=== PATIENT | female | born 1995 | race African-American/Black ===

== ENCOUNTER 2025-01-10 13:51 | Inpatient (IN) | payer OTHER ==
[2025-01-10 14:23] VITALS: BMI 26.2
[2025-01-10] MEDS ORDERED: guaiFENesin 600 MG TABLET.ER (FP) PO PRN (14:31)
[2025-01-10] MEDS ORDERED: POLYETHYLENE GLYCOL (HEALTHYLAX) 3350 17 GM PACKET PO PRN (14:31)
[2025-01-10] MEDS ORDERED: DICYCLOMINE HCL 10 MG CAPSULE PO PRN (14:31)
[2025-01-10] MEDS ORDERED: hydrOXYzine PAMOATE 25 MG CAPSULE (FP) PO PRN (14:31)
[2025-01-10] MEDS ORDERED: BENZONATATE 200 MG CAPSULE PO PRN (14:31)
[2025-01-10] MEDS ORDERED: NALOXONE (NARCAN) HCL 4 MG/0.1 ML SPRAY NS PRN (14:31)
[2025-01-10] MEDS ORDERED: ONDANSETRON *ODT* 4 MG TABLET SL PRN (14:31)
[2025-01-10] MEDS ORDERED: MAGNESIUM HYDROX 2400MG/30ML ORAL SUSPENSION 30 ML CUP PO PRN (14:31)
[2025-01-10] MEDS ORDERED: MAG HYDROX/AL HYDROX/SIMETH 30 ML UNIT-DOSE CUP PO PRN (14:31)
[2025-01-10] MEDS ORDERED: BENZOCAINE/MENTHOL (CHLORASEPTIC ) LOZENGE MM PRN (14:31)
[2025-01-10] MEDS ORDERED: BISMUTH SUBSALICYLATE 524 MG/30 ML PO PRN (14:31)
[2025-01-10] MEDS ORDERED: LOPERAMIDE HCL 2 MG CAPSULE PO PRN (14:31)
[2025-01-10] MEDS: IBUPROFEN 600 MG TABLET (FP) PO PRN (17:30)
[2025-01-10] MEDS: PRENATAL VITAMINS W/ FOLIC ACID TABLET (FP) PO SCH (17:39)
[2025-01-10] MEDS: THIAMINE 100 MG TABLET PO SCH (21:38)
[2025-01-10] MEDS: METHOCARBAMOL 500 MG TABLET PO PRN (21:38)
[2025-01-10] MEDS: MELATONIN 5 MG TABLETS PO SCH (21:38)
[2025-01-11] MEDS ORDERED: chlordiazePOXIDE HCL 25 MG CAPSULE PO PRN (09:23)
[2025-01-11] MEDS: chlordiazePOXIDE HCL 25 MG CAPSULE PO SCH (10:26)
[2025-01-11 10:28] LABS: HEMATOCRIT 31.1 % (34.1-44.9); HEMOGLOBIN 9.5 g/dL (11.2-15.7); MCHC 30.5 g/dl (32.2-35.5); MEAN CELL VOLUME 78.3 fl (79.4-94.8); PLATELET COUNT 235 x10^3/uL (182-369); RDW 16.8 % (12.1-16.5)
[2025-01-11 10:30] LABS: POTASSIUM 4.3 mmol/L (3.5-5.1)
[2025-01-11 10:47] LABS: CALCIUM 9.6 mg/dL (8.5-10.1)
[2025-01-11 10:48] LABS: ALBUMIN 3.6 g/dl (3.4-5.0)
[2025-01-11 10:50] LABS: BLOOD UREA NITROGEN 6.5 mg/dL (7-18)
[2025-01-11 10:51] LABS: CREATININE 0.8 mg/dL (0.55-1.3)
[2025-01-11 10:52] LABS: BILIRUBIN,TOTAL 0.9 mg/dL (0.2-1)
[2025-01-11] MEDS: ACETAMINOPHEN 325 MG TABLET (FP) PO PRN (22:22)
[2025-01-12] MEDS: chlordiazePOXIDE HCL 25 MG CAPSULE PO SCH (06:40)
[2025-01-12] MEDS: IBUPROFEN 400 MG TABLET (FP) PO PRN (06:43)
[2025-01-12] MEDS ORDERED: ALBUTEROL SO4 HFA INHALER IH PRN (09:56)
[2025-01-13] MEDS ORDERED: chlordiazePOXIDE HCL 10 MG CAPSULE PO PRN
[2025-01-13] MEDS: chlordiazePOXIDE HCL 10 MG CAPSULE PO SCH (05:55)
[2025-01-14] MEDS: chlordiazePOXIDE HCL 10 MG CAPSULE PO SCH (05:29)
[2025-01-14 09:34] VITALS: TEMP 97.6
[2025-01-14] MEDS: NALTREXONE HCL 50 MG TABLET PO ONE (10:52)
[2025-01-14 13:23] VITALS: BP 105/60; PULSE 71; RESP 16
[2025-01-14 15:04] LABS: IRON SERUM 18 ug/dL (50-175)
[2025-01-14 15:05] LABS: TOTAL IRON BINDING CAPACITY 465 ug/dL (250-450)
[2025-01-15] MEDS ORDERED: chlordiazePOXIDE HCL 10 MG CAPSULE PO ONE (05:00)
[2025-01-15] MEDS ORDERED: NALTREXONE HCL 50 MG TABLET PO SCH (10:00)
== END 2025-01-14 15:25 | disposition home or self-care (01) | DRG 775 ==
LOC: YASAS 13:51 → Y6N 16:47
PROVIDERS: ADMIT Allergy & Immunology; ATTEND Allergy & Immunology
PROC: HZ2ZZZZ Detoxification Services for Substance Abuse Treatment (ICD-10-PCS; principal; 2025-01-10)
DX: F10.230 Alcohol dependence with withdrawal, uncomplicated (principal); F17.210 Nicotine dependence, cigarettes, uncomplicated; F25.9 Schizoaffective disorder, unspecified; F10.282 Alcohol dependence with alcohol-induced sleep disorder; F10.24 Alcohol dependence with alcohol-induced mood disorder; J45.20 Mild intermittent asthma, uncomplicated
CPT/HCPCS: 36415; 80053; 80305; 80307; 82607; 82728; 82747; 83540; 83550; 85014; 85027; 86780; 93005; 93010

== ENCOUNTER 2025-03-06 08:25 | Inpatient (IN) | payer OTHER ==
[2025-03-06 08:58] VITALS: BMI 25.9
[2025-03-06] MEDS ORDERED: NICOTINE POLACRILEX 4 MG GUM BUC PRN (09:03)
[2025-03-06] MEDS ORDERED: BENZONATATE 200 MG CAPSULE PO PRN (09:03)
[2025-03-06] MEDS ORDERED: NALOXONE (NARCAN) HCL 4 MG/0.1 ML SPRAY NS PRN (09:03)
[2025-03-06] MEDS ORDERED: DICYCLOMINE HCL 10 MG CAPSULE PO PRN (09:03)
[2025-03-06] MEDS ORDERED: METHOCARBAMOL 500 MG TABLET PO PRN (09:03)
[2025-03-06] MEDS ORDERED: ONDANSETRON *ODT* 4 MG TABLET SL PRN (09:03)
[2025-03-06] MEDS ORDERED: MAGNESIUM HYDROX 2400MG/30ML ORAL SUSPENSION 30 ML CUP PO PRN (09:03)
[2025-03-06] MEDS ORDERED: POLYETHYLENE GLYCOL (HEALTHYLAX) 3350 17 GM PACKET PO PRN (09:03)
[2025-03-06] MEDS ORDERED: guaiFENesin 600 MG TABLET.ER (FP) PO PRN (09:03)
[2025-03-06] MEDS ORDERED: IBUPROFEN 600 MG TABLET (FP) PO PRN (09:03)
[2025-03-06] MEDS ORDERED: IBUPROFEN 400 MG TABLET (FP) PO PRN (09:03)
[2025-03-06] MEDS ORDERED: MAG HYDROX/AL HYDROX/SIMETH 30 ML UNIT-DOSE CUP PO PRN (09:03)
[2025-03-06] MEDS ORDERED: LOPERAMIDE HCL 2 MG CAPSULE PO PRN (09:03)
[2025-03-06] MEDS ORDERED: BISMUTH SUBSALICYLATE 524 MG/30 ML PO PRN (09:03)
[2025-03-06] MEDS ORDERED: BENZOCAINE/MENTHOL (CHLORASEPTIC ) LOZENGE MM PRN (09:03)
[2025-03-06] MEDS ORDERED: hydrOXYzine PAMOATE 25 MG CAPSULE (FP) PO PRN (09:03)
[2025-03-06] MEDS ORDERED: ALBUTEROL SO4 HFA INHALER IH PRN (09:05)
[2025-03-06] MEDS: chlordiazePOXIDE HCL 25 MG CAPSULE PO PRN (10:30)
[2025-03-06] MEDS: PRENATAL VITAMINS W/ FOLIC ACID TABLET (FP) PO SCH (10:31)
[2025-03-06] MEDS: chlordiazePOXIDE HCL 25 MG CAPSULE PO ONE (10:31)
[2025-03-06] MEDS: MUPIROCIN 2% TOPICAL OINTMENT 22 GM TUBE TP SCH (11:38)
[2025-03-06] MEDS: chlordiazePOXIDE HCL 25 MG CAPSULE PO SCH (17:21)
[2025-03-06 17:51] VITALS: RESP 16
[2025-03-06 21:57] VITALS: BP 137/90; PULSE 87; TEMP 97.5
[2025-03-06] MEDS: MELATONIN 5 MG TABLETS PO SCH (22:36)
[2025-03-06] MEDS: THIAMINE 100 MG TABLET PO SCH (22:36)
[2025-03-06] MEDS: ACETAMINOPHEN 325 MG TABLET (FP) PO PRN (22:39)
[2025-03-08] MEDS ORDERED: chlordiazePOXIDE HCL 25 MG CAPSULE PO SCH (05:00)
[2025-03-09] MEDS ORDERED: chlordiazePOXIDE HCL 10 MG CAPSULE PO PRN
[2025-03-09] MEDS ORDERED: chlordiazePOXIDE HCL 10 MG CAPSULE PO SCH (05:00)
[2025-03-10] MEDS ORDERED: chlordiazePOXIDE HCL 10 MG CAPSULE PO SCH (05:00)
[2025-03-11] MEDS ORDERED: chlordiazePOXIDE HCL 10 MG CAPSULE PO ONE (05:00)
== END 2025-03-06 23:08 | disposition left against medical advice (07) | DRG 770 ==
LOC: YASAS 08:25 → Y6N 09:33
PROVIDERS: ADMIT Allergy & Immunology; ATTEND Allergy & Immunology
PROC: HZ2ZZZZ Detoxification Services for Substance Abuse Treatment (ICD-10-PCS; principal; 2025-03-06)
DX: F10.230 Alcohol dependence with withdrawal, uncomplicated (principal); F12.20 Cannabis dependence, uncomplicated; F17.213 Nicotine dependence, cigarettes, with withdrawal; F25.9 Schizoaffective disorder, unspecified; F10.282 Alcohol dependence with alcohol-induced sleep disorder; F41.9 Anxiety disorder, unspecified; J45.20 Mild intermittent asthma, uncomplicated
CPT/HCPCS: 93005; 93010